=== PATIENT | female | born 1950 | race American Indian/Alaskan Native ===

== ENCOUNTER 2017-01-18 14:22 | Outpatient (CLI) | payer MEDICARE ==
--- NOTE | 2017-01-18 15:34 | XRay Report ---
Bilateral knees, 3 views of each: Bilateral knee pain. Both knees appear well aligned with good preservation of the joint spaces and articular surfaces. There is good bony mineralization. No swelling and no effusions identified. Impression: Unremarkable exam bilaterally.
== END 2017-01-18 14:23 | disposition home or self-care (01) ==
LOC: XRAY 14:22
PROVIDERS: ATTEND Internal Medicine
DX: M25.561 Pain in right knee (principal); M25.562 Pain in left knee

== ENCOUNTER 2019-02-24 08:22 | Outpatient (CLI) | payer MEDICARE, OTHER | END 2019-02-24 08:23 | disposition home or self-care (01) | LOC: LABHHL 08:22 | PROVIDERS: ATTEND Surgery | DX: N63.11 Unspecified lump in the right breast, upper outer quadrant (principal) | CPT/HCPCS: 88305 ==

== ENCOUNTER 2020-06-05 10:57 | Outpatient (CLI) | payer MEDICARE ==
--- NOTE | 2020-06-05 15:34 | Ultrasound Report ---
Limited Ultrasound Soft Tissue Right Lower Back HISTORY: R92.2 INCONCLUSIVE MAMMO/ LUMP ON BACK. TECHNIQUE: Limited grayscale and color Doppler imaging was performed in the right lower back area of interest. COMPARISON: None. FINDINGS: No abnormality is seen in the soft tissues of the patient's palpable abnormality in the rig ht lower back. No abnormal color flow is noted. IMPRESSION: No significant abnormality or focal soft tissue lesion in the area of interest. Scribed by: More Chilel RDMS, RVT Scribed: 06/05/2020 12:22 PM Signer Name: Alen Gold MD Signed: 06/05/2020 3:09 PM Workstation Name: [id number]
== END 2020-06-05 10:58 | disposition home or self-care (01) ==
LOC: SPVWC 10:57
PROVIDERS: ATTEND Surgery
DX: R22.2 Localized swelling, mass and lump, trunk (principal)
CPT/HCPCS: 76999

== ENCOUNTER 2020-12-25 10:57 | Outpatient (CLI) | payer MEDICARE ==
--- NOTE | 2020-12-25 17:19 | Mammography Report ---
DIGITAL SCREENING MAMMOGRAM WITH CAD, 12/25/2020 CLINICAL INFORMATION / INDICATION: Routine screening mammography. TECHNIQUE: Digital bilateral 2D mammography was obtained in the craniocaudal and mediolateral obliqu e projections. This examination was interpreted with the benefit of Computer-Aided Detection analysis . COMPARISON: 12/15/2018 FINDINGS: Breast Density: There are scattered areas of fibroglandular density. No dominant mass, suspicious calcifications, or architectural distortion in either breast. No interval change. IMPRESSION: No mammographic evidence of malignancy. Follow up recommendation: Routine yearly BI-RADS Category 1: Negative. A "normal" or negative report should not discourage follow up or biopsy of a clinically significant f inding. A written summary of these findings will be mailed to the patient. The patient will be entered into a mammography reporting system which will generate a reminder letter for the patient's next appointmen t at the appropriate interval. The [employer] recommends yearly mammograms starting at age 40 and continuing as l robert as a woman is in good health. Breast MRI is recommended for women with an approximate 20-25% or greater lifetime risk of breast cancer, including women with a strong family history of breast or ova gael cancer or who have been treated for Hodgkin's disease. Signer Name: Rosa Padilla MD Signed: 12/25/2020 5:15 PM Workstation Name: [id number]
== END 2020-12-25 10:58 | disposition home or self-care (01) ==
LOC: SPVWC 10:57
PROVIDERS: ATTEND Internal Medicine
DX: Z12.31 Encounter for screening mammogram for malignant neoplasm of breast (principal)
CPT/HCPCS: 77067